=== PATIENT | male | born 1990 | race Caucasian/White ===

== ENCOUNTER 2016-12-27 00:30 | Day surgery (SDC) | payer OTHER ==
[~2016-12-27] VITALS: Ht 180.3 cm; Wt 88.5 kg
[~2016-12-27 00:30] MED LIST: PANT40TA3 PO
[2016-12-27] MEDS ORDERED: Sodium Chloride LOK Flush 10 mL Syringe IV PRN (06:00)
[2016-12-27] MEDS ORDERED: 0.9% Sodium Chloride 1,000 ML IV SCH (06:00)
[2016-12-27] MEDS ORDERED: fentaNYL-PF 50 mCg/mL 2 mL Inj IVPUSH PRN (06:00)
[2016-12-27 12:11] VITALS: BP 136/74; PULSE 76; RESP 16; O2SAT 96
[2016-12-27] MEDS ORDERED: MULT-1104 PO (12:11)
[2016-12-27] MEDS ORDERED: ERGO2000 PO (12:11)
[2016-12-27 13:08] VITALS: BP 113/61; PULSE 68; RESP 12; O2SAT 100
[2016-12-27 13:18] VITALS: BP 115/61; PULSE 78; RESP 14; O2SAT 100
[2016-12-27 13:27] VITALS: BP 127/69; PULSE 76; RESP 14; O2SAT 100
--- NOTE | 2016-12-27 13:32 | ENDO ---
[address] [address] ENDOSCOPY PROCEDURE PATIENT: ARIN SONG : 1990 MR#: [id number] ADMIT: 12/27/2016 JOB ID: [id number] PROCEDURE: Esophagogastroduodenoscopy and colonoscopy. INDICATION FOR ESOPHAGOGASTRODUODENOSCOPY: Generalized abdominal pain. The patient's ASA classification is II. Mallampati score is I. MEDICATIONS: Versed at 9 mg, fentanyl 125 mcg. INSTRUMENT USED: [id number]. PROCEDURE DETAILS: After informed consent was obtained, the patient was brought into the GI suite, where he was placed on oxygen via nasal cannula and monitored with continuous pulse oximeter, telemetry, and blood pressure monitoring. A time-out was performed. Then, he was placed in a left lateral decubitus position and medications were administered for sedation. A bite block was placed. Standard EGD scope was inserted through the bite block and advanced under direct visualization to the second portion of the duodenum without difficulty. FINDINGS: 1. Normal-appearing duodenal bulb, first and second portion. Multiple random biopsies were obtained. 2. Normal-appearing pylorus, antrum, and gastric body. 3. Retroflexed views in the gastric body revealed a normal-appearing cardia and fundus. 4. Multiple random biopsies were obtained throughout the antrum and body of the stomach. 5. The GE junction was at approximately 41 cm. It was irregular. On one fold, there was ulceration noted extending approximately 1 cm proximally. The remainder of the esophagus otherwise unremarkable. IMPRESSION: [place] Class A ulcerative esophagitis. Otherwise normal exam to second portion of duodenum. RECOMMENDATIONS: 1. Await biopsy results. 2. Proceed to colonoscopy. PROCEDURE PERFORMED: Colonoscopy. INDICATION: Diarrhea and abdominal pain. Please see above for ASA classification, Mallampati score, and medications. INSTRUMENT USED: [id number]. Prep quality was good. PROCEDURE DETAILS: After completion of the EGD exam, the patient was turned and then a digital rectal exam was performed. Colonoscope was then inserted into the rectum and advanced under direct visualization to the terminal ileum which was identified by the presence of the ileocecal valve and villous appearing mucosa of the terminal ileum. Once the terminal ileum was reached, the colonoscope was withdrawn back into the rectum as the mucosa and lumen were examined. In the rectum, retroflexion was performed. Following retroflexion, remaining air in the rectum was suctioned, and procedure was completed. FINDINGS: 1. Normal appearing terminal ileum. Multiple random biopsies were obtained. 2. Normal colon exam from rectum to cecum. Multiple random biopsies were obtained throughout the entire colon. 3. Retroflexed views in the rectum were unremarkable. IMPRESSION: Normal colonoscopy to terminal ileum. RECOMMENDATIONS: 1. Await biopsy results. 2. Follow up in GI clinic. 3. Consider taking PPI daily and reflux precautions. COMPLICATIONS: None. ESTIMATED BLOOD LOSS: Less than 5 mL. CC: Patient's primary care provider
--- NOTE | 2016-12-30 13:02 | PATH ---
SURGICAL PATHOLOGY Attending Physician:Erwin Nichole CASE STATUS: Signed Out PATIENT NAME: ARIN SONG PID: [id number] : 1990 DATE COLLECTED:12/27/2016 22:47 SPECIMEN: 1: Duodenum, Biopsy 2: Gastric, Biopsy 3: Esophagus, Biopsy 4: Ileum, Biopsy 5: Colon, Biopsy CLINICAL HISTORY: 1). DUODENAL BIOPSY 2). RANDOM GASTRIC 3). DISTAL ESOPHAGUS 4). TERMINAL ILEUM 5). RANDOM COLON BIOPSIES FINAL DIAGNOSIS: 1.DUODENAL BIOPSY: FRAGMENTS OF NORMAL-APPEARING DUODENAL MUCOSA. Normal delicate mucosal villi present. Negative for significant inflammation, dysplasia and malignancy. 2.RANDOM GASTRIC: FRAGMENTS OF GASTRIC FUNDIC MUCOSA, NEGATIVE FOR SIGNIFICANT INFLAMMATION. Negative for evidence of Helicobacter. Negative for intestinal metaplasia. Negative for dysplasia and malignancy. 3.DISTAL ESOPHAGUS BIOPSIES: FRAGMENTS OF SQUAMOUS MUCOSA AND GASTRIC CARDIA-TYPE MUCOSA, NEGATIVE FOR SPECIALIZED METAPLASIA OF JOHNSON' S-TYPE ESOPHAGUS. POSITIVE FOR SQUAMOUS INTRAEPITHELIAL EOSINOPHILS CONSISTENT WITH CHANGES OF CHRONIC REFLUX. Negative for dysplasia and malignancy. 4.TERMINAL ILEUM BIOPSY: FRAGMENTS OF NORMAL-APPEARING TERMINAL ILEUM MUCOSA. Negative for granulomas. Negative for significant inflammation, dysplasia and malignancy. 5.RANDOM COLON BIOPSIES: FRAGMENTS OF NORMAL-APPEARING COLON MUCOSA. Negative for significant architectural distortion. Negative for significant inflammation, dysplasia and malignancy. ICD10 code K21.0 GROSS DESCRIPTION: The specimen is received in five formalin filled containers labeled with the patient's name. 1). The specimen is sublabeled "duodenal" and consists of 5 portions of tissue which aggregate to 0.4 x 0.4 x 0.3 CM. The specimen is entirely submitted in cassette 1A. 2). The specimen is sublabeled "random gastric" and consists of 2 portions of tissue which aggregate to 0.3 x 0.3 x 0.2 CM. The specimen is entirely submitted in cassette 2A. 3). The specimen is sublabeled "distal esophagus" and consists of a 0.3 x 0.2 x 0.2 CM portion of tissue which is entirely submitted in cassette 3A. 4). The specimen is sublabeled "terminal ileum" and consists of 2 portions of tissue which aggregate to 0.3 x 0.3 x 0.2 CM. The specimen is entirely submitted in cassette 4A. 5). The specimen is sublabeled "random colon" and consists of multiple portions of tissue which aggregate to 0.5 x 0.5 x 0.3 CM. The specimen is entirely submitted in cassette 5A. 12/27/2016 [facility] MICRO DESCRIPTION: See diagnosis. ICD-9 CODES: CPT CODES: 1: 43758 2: 82545 3: 28611 4: 59744 5: 87542 Electronically Signed Out Familia Napier MD [facility] [address], [place] [address] Technical component performed at [facility], [facility] [address], [place], [address]
== END 2016-12-27 23:59 | disposition home or self-care (01) ==
LOC: END 00:30
PROVIDERS: ATTEND Internal Medicine Gastroenterology
DX: R19.7 Diarrhea, unspecified (principal); R10.84 Generalized abdominal pain; K21.0 Gastro-esophageal reflux disease with esophagitis; F41.9 Anxiety disorder, unspecified; F32.9 Major depressive disorder, single episode, unspecified; G43.909 Migraine, unspecified, not intractable, without status migrainosus
CPT/HCPCS: 43239; 45380; 88305; 99153; G0500; J7030